=== PATIENT | male | born 1995 | race Two or more races ===

== ENCOUNTER 2024-06-03 13:13 | Emergency (ER) | payer MEDICAID, SELFPAY ==
[2024-06-03 13:14] VITALS: BMI 25.7
[2024-06-03 13:26] VITALS: BP 123/86; PULSE 95; RESP 20; TEMP 36.9; O2SAT 97
--- NOTE | 2024-06-03 13:58 | PD.EDDENTL ---
ED Dental RME/HPI General Chief complaint: Dental/Oral/Throat Stated complaint: SORE THROAT AND FEVER Time Seen by Provider: 06/03/24 13:24 Source: patient Arrival date/time: 06/03/24 13:13 This is a 28-year-old male presents to the emergency department complaints of throat pain, chills and painful swallowing. Patient reports he did not measure his feve. Patient did not attempt any interventions or take any OTC medications prior to ED visit. Patient denies any other associated symptoms or aggravating factors. No modifying factors, no radiation, no migration. Denies cough.No measured fevers. No steroid use or immunosuppressive state. Mode of arrival: ambulatory Limitations: no limitations Related Data Previous Rx's ?Medication ?Instructions ?Recorded penicillin V potassium 500 mg 500 mg PO BID 10 days #20 tabs 06/03/24 tablet Allergies Allergy/AdvReac Type Severity Reaction Status Date / Time No Known Allergies Allergy Verified 06/03/24 13:15 Review of Systems Review of Systems Systems Reviewed: All systems reviewed, normal except as documented Narrative Review of Systems: Gen:++ fever, no chills, no weight loss EYES: No discharge, no visual changes, no pain HEENT: No ear pain, no congestion, ++ sore throat PULM: No shortness of breath, no cough, no congestion CV: No chest pain, no dyspnea on exertion, no palpitations GI: No nausea, no vomiting, no diarrhea, no pain, no constipation : No frequency, no urgency,? no dysuria Musc/skel: No joint pain, no back pain Skin: No rash? ED Exam General Limitations: Present no limitations General appearance: Present alert and in no apparent distress Head Head exam: Present atraumatic Eye Eye exam: Present normal appearance, PERRL and EOMI ENT ENT exam: Present normal exam, normal oropharynx and mucous membranes moist Neck Neck exam: Present full ROM, trachea midline and tenderness Chest Chest inspection: Present normal inspection and symmetric chest wall rise Respiratory Respiratory exam: Present normal lung sounds bilaterally Cardiovascular Cardiovascular exam: Present regular rate, normal rhythm and normal heart sounds Abdominal Exam Abdominal exam: Present soft and normal bowel sounds Extremities Exam Extremities exam: Present normal inspection and full ROM Back Exam Back exam: Present normal inspection and full ROM Neurological Exam Neurological exam: Present alert, oriented X3 and CN II-XII intact Psychiatric Psychiatric exam: Present normal affect and normal mood Skin Skin exam: Present warm, dry, intact and normal color Course Quality Measures none Orders Category Date Time Status Bedside COVID-19 Antigen Test NOW Care 06/03/24 13:47 Completed Strep A Rapid Stat Lab 06/03/24 14:01 Completed Vital Signs Vital signs: Vital Signs Temperature 98.4 F 06/03/24 13:26 Pulse Rate 95 06/03/24 13:26 Respiratory Rate 20 06/03/24 13:26 Blood Pressure 123/86 H 06/03/24 13:26 Pulse Oximetry (%) 97 06/03/24 13:26 Oxygen Delivery Method Room Air 06/03/24 13:26 Dental / Oral MDM Narrative MDM Narrative:: No history of immunocompromise. Nontoxic appearance. Patient euvolemic with no trismus. No airway compromise. Able to tolerate PO.Tolerating secretions. Otherwise well with no changes to vision, no dysphonia, no dysphagia. Will treat with oral antibiotics. Follow-up with PCP. Strict ER precautions given to return if there is any worsening symptoms or change in condition. Patient data External records reviewed:: [facility] previous records Clinical information provided by:: patient Social determinants that could affect healthcare access:: none Patient has the following chronic illnesses:: no How is presenting disease/condition affected by chronic disease/condition?: no chronic disease Evaluation data The following diagnostics were reviewed and interpreted by me:: lab results Lab and/or radiology exams considered but not ordered:: no Interpretation Summary: Covid flu neg strep Medications / Prescriptions Medications or Prescriptions considered but not ordered:: no Medication administrations:: no Consultations Consultation(s) initiated? (list below): No Diagnosis Dental Differential Diagnosis: gingival abscess, dental caries, dental abscess and other (strep) Most likely diagnosis given after review of the tests above:: Strep pharyngitis Admission Indicated Admission indicated?: not indicated Admission Request Was there a request for admission?: No Disposition Plan Disposition Plan: Discharge Discharge Attestation Discharge Attestation: The patient and all family members were given an opportunity to ask questions and understood the discharge instructions. Discharge instructions specifically effects, indications for sooner follow up or return to the emergency department, and the expected course of current diagnosis. Patient condition: Stable Discharge Plan Plan Patient Disposition: HOME (Self Care) Patient condition on transfer: Stable Prescriptions/Referrals Prescriptions/Med Rec: New penicillin V potassium 500 mg tablet 500 mg PO BID 10 Days Qty: 20 0RF Referrals: No Primary/Family,Physician [Primary Care Provider] - In 1 week Problem List Clinical Impression: Acute pharyngitis Patient/Caregiver Discharge Instructions Discharge Activity: activity as tolerated Education Materials: Self-Care for Sore Throats Additional Instructions: antibiotics are prescribed to avoid serious complications. Advised to take OTC NSAID prn pain or fevers. Fluids, soups, tea, honey advised. Use humidifier at nights. Replace toothbrush. Follow up if symptoms persist / worsen over next 2-3 days. Print Language: [place] Citizen Stand Alone Forms: [employer] Award Info., Patient Portal Info Letter PA/CLINICAL RESEARCH SPECIALIST Supervising Physician PA/ELVIRA Supervising Physician: Dr Dyer
[2024-06-03 14:37] LABS: Strep A Rapid Negative (Negative)
== END 2024-06-03 15:35 | disposition home or self-care (01) ==
PROVIDERS: Nurse Practitioner Primary Care; Emergency Provider Emergency Medicine
DX: J02.9 Acute pharyngitis, unspecified (principal)
CPT/HCPCS: 87651; 87811; 99283